=== PATIENT | male | born 1960 | race Caucasian/White ===

== ENCOUNTER 2019-04-08 01:29 | Emergency (ER) | payer OTHER, SELFPAY ==
[2019-04-08 01:30] VITALS: BP 131/60; PULSE 85; RESP 14; TEMP 36.8; O2SAT 93; BMI 32.5
--- NOTE | 2019-04-08 01:32 | ED.DCSUM_ITS ---
History of Present Illness Chief Complaint: Back Informant: Patient Onset: Today Context: Gradual Onset Timing: Continuous Current Severity: Moderate Maximum Severity: Moderate Narrative: The patient presents to the emergency department with atraumatic low back pain. The patient states he was watching football tonight. He began to have some tightness in his left low back. Since then, he states that it worsened and he had a difficult time walking because of the pain. It does not radiate down his legs. He denies any numbness in his groin. He denies any trauma. He states he does have a history of prior back pain and usually only takes aspirin. He is had no history of prior back surgery. He is otherwise been in his normal state of health. Prior similar symptoms: Yes Recent Illness/Hospitalization: No Past Medical History - Allergies and Home Meds Allergies/Adverse Reactions: Allergies No Known Allergies Allergy (Verified 04/08/19 01:29) Primary Care Physician: Gildardo Pedroza MD [Primary Care Provider] - Prior records reviewed: Yes Surgical History: no surgical history Lives: With Family Smoking Status: Current some day smoker Review of Systems General: Denies: Chills, Fever, Sweats Eyes: Denies: Visual changes - bilaterally, Diplopia ENT: Denies: Rhinorrhea, Sore throat Cardiovascular: Denies: Chest pain, Palpitations Respiratory: Denies: Dyspnea, Cough, Dyspnea on exertion Gastrointestinal: Denies: Abdominal pain, Nausea, Vomiting, Diarrhea, Melena, Hematochezia Genitourinary: Denies: Dysuria, Hematuria, Frequency Musculoskeletal: Reports: Back pain. Denies: Extremity Pain Skin: Denies: Rash, Wounds Neurological: Denies: Headache, Weakness, Numbness Physical Exam Inital Vital Signs reviewed: Yes General: Well nourished, Well developed, No Acute Distress Head: Normocephalic, Atraumatic Eyes: Perrl, EOMI ENT: Moist mucous membranes, No rhinorrhea Neck: Supple, Nontender Cardiovascular: Regular rate, Regular rhythm, No murmurs Respiratory: No distress, CTA bilaterally, Chest nontender Abdomen: Soft, Nontender, Nondistended, Normal bowel sounds Back: Nontender, Normal Inspection Extremities: Nontender, No edema Skin: Normal color, No rash Neurological: Alert, Oriented x3, Cranial nerves II-XII grossly intact, Normal Strength, Normal Sensation Psychological: Normal affect, Normal Mood Diagnostic/Tx/Re-eval Clinical Impression(s) from Imaging Studies Abdomen/Pelvis CT 04/08/19 01:42 IMPRESSION: Sigmoid diverticulosis. There is a 12 mm spondylolisthesis at L5-S1 due to degenerative changes in the facet joints. There is a left-sided inguinal hernia containing adipose tissue. There is a small umbilical hernia containing fat. Electronically Signed: Ramandeep Leon, at 3:13 EDT Tel , Service support , Abnormal Lab Results 04/08/19 04/08/19 04/08/19 01:46 02:35 02:35 WBC 9.7 RBC 4.62 Hgb 14.4 Hct 43.4 MCV 93.9 MCH 31.2 MCHC 33.2 RDW Std Deviation 45.3 H RDW Coeff of Jayro 13.2 Plt Count 218 MPV 10.4 Immature Gran % (Auto) 0.500 Neut % (Auto) 77.3 H Lymph % (Auto) 10.2 L Hettinger % (Auto) 9.7 Eos % (Auto) 1.9 Baso % (Auto) 0.4 Absolute Neuts (auto) 7.5 Absolute Lymphs (auto) 0.99 Nucleated RBC % 0 Sodium 143 Potassium 4.2 Chloride 111 H Carbon Dioxide 27.0 Anion Gap 5 BUN 19 H Creatinine 1.20 Estim Creat Clear Calc 64.26 Est GFR (MDRD) Af Amer 80 Est GFR (MDRD) Non-Af 67 BUN/Creatinine Ratio 15.8 Glucose 108 H Calcium 8.5 Urine Color SEE COMMENT BELOW Urine Clarity Cloudy Urine pH 6.0 Ur Specific Harlan 1.015 Urine Protein Negative Urine Glucose (UA) Normal Urine Ketones Negative Urine Occult Blood 250 H Urine Nitrite Negative Urine Bilirubin Negative Urine Urobilinogen Normal Ur Leukocyte Esterase Negative Urine RBC 25-50 SEEN Urine WBC 0 SEEN Ur Squamous Epith Cells 0 SEEN Urine Bacteria RARE Urine Mucus 0 SEEN - Medical Decision Making Patient presents to the emergency department with left low back pain. It does not radiate down his legs. It was gradual in onset and has been worsening. He denies any weakness or red flag symptoms. His urine did have some blood. Given this and his age, screening labs are obtained which are unremarkable. The patient underwent CT of his abdomen and pelvis. His aorta is normal. He does have rather significant disease in the spine which I feel is likely the cause of his symptoms. There is no definitive kidney stone. With analgesics, the patient symptoms have improved. I am going to treat him with analgesics and antispasmodics as an outpatient. I did evp general counsel him that he may need physical therapy or an outpatient MRI, but he has no evidence of cauda equina or epidural abscess. I do feel that he is safe for discharge. Impression 1. Left low back pain ED Disposition - Plan for ED Patient: Instructions: BACK PAIN w/ SCIATICA Prescriptions: cycloBENZAPRine HCl [Flexeril] 10 mg PO TID PRN #20 tab PRN Reason: Muscle Spasm Prescription Printed MethylPREDNISolone DosePak [Medrol DosePak] 4 mg PO UD #1 box Prescription Printed Hydrocodone Bitart/Apap 5-325 [[place] 5MG-325MG] 1 tab PO Q6H PRN PRN 3 Days #10 tab PRN Reason: Pain Prescription Printed Referrals: Gildardo Pedroza MD [Primary Care Provider] -
[2019-04-08] MEDS: HYDROcodone Bitartrate/Apap 5/325 Tablet PO (01:37)
--- NOTE | 2019-04-08 01:42 | CT_ITS ---
STUDY: CT ABDOMEN AND PELVIS WITHOUT CONTRAST REASON FOR EXAM: Male, 58 years old. BACK PAIN LOWER LEFT SIDE WITH LEFT LEG SPASMS RADIATION DOSAGE (If Supplied By Facility): CTDIvol = ( 12.94 ) mGy, DLP = ( 639.94 ) mGycm TECHNIQUE: Transaxial images were obtained from the dome of the diaphragm to the symphysis pubis without oral contrast, and without intravenous contrast. Sagittal and coronal images were reconstructed. Individualized dose optimization techniques were used for this CT. COMPARISON: None. FINDINGS: The visualized lung bases are unremarkable. The visualized portions of the heart are within normal limits. Normal liver. Normal gallbladder and extrahepatic biliary system. Normal spleen. Normal pancreas. Normal bilateral adrenal glands. Normal right kidney. Normal left kidney. Normal visualized stomach. Normal small intestine. There are multiple colonic diverticula consistent with diverticulosis. The appendix is visualized and appears normal. Normal abdominal aorta. Normal inferior vena cava. Normal retroperitoneum. Normal urinary bladder. There is a left-sided inguinal hernia containing adipose tissue. There is a small umbilical hernia containing fat. There are diffuse degenerative changes of the visualized lumbar spine there is 12 mm spondylolisthesis at L5-S1 due to degenerative changes in the facet joints. CT/Abdomen/Pelvis without Cont IMPRESSION: Sigmoid diverticulosis. There is a 12 mm spondylolisthesis at L5-S1 due to degenerative changes in the facet joints. There is a left-sided inguinal hernia containing adipose tissue. There is a small umbilical hernia containing fat. Electronically Signed: Ramandeep Leon, at 3:13 EDT Tel , Service support ,
[2019-04-08 01:50] LABS: Mucous, Urine 0 SEEN /hpf (<or=2+); Squamous Epithelial Cells - UA 0 SEEN /hpf (0-5); White Blood Cells 0 SEEN /hpf (0-5)
[2019-04-08 01:52] LABS: Glucose, Dipstick Normal (Normal); Ketone-Dipstick Negative (Negative); Leukocyte Esterase-Dipstick Negative /ul (Negative); Nitrite-Dipstick Negative (Negative); Occult Blood-Urine 250 /ul (Negative); Protein-Dipstick Negative (Negative); Specific Gravity, Urine 1.015 (1.002-1.030); Urine Bilirubin Dipstick Negative (Negative); Urine Clarity Cloudy (Clear); Urine Urobilinogen Normal (Normal)
[2019-04-08 02:00] LABS: Color, Urine SEE COMMENT BELOW (Yellow)
[2019-04-08 02:01] LABS: Red Blood Cells-Urine 25-50 SEEN /hpf (0-5)
[2019-04-08 02:02] LABS: Bacteria RARE /hpf (None Seen)
[2019-04-08 02:39] LABS: Absolute Lymphocyte Count 0.99 X10^3/uL (0.83-4.51); Absolute Neutrophil Count 7.5 X10^3/uL (2.0-7.7); Basophil# 0.04 X10^3/uL; Basophil% 0.4 % (0-1); Eosinophil# 0.18 X10^3/uL; Eosinophils% 1.9 % (0-5); Hematocrit 43.4 % (40-54); Hemoglobin 14.4 g/dL (13.0-16.5); Lymphocyte # 0.99 X10^3/ul (4.0); Lymphocyte % 10.2 % (19-41); Mean Corp Hgb Conc 33.2 g/dL (32-36); Mean Corpuscular Hgb 31.2 pg (27.0-32.0); Mean Corpuscular Volume 93.9 fL (80-94); Mean Platelet Vol. 10.4 fl (6.2-12.0); Monocyte# 0.94 X10^3/uL; Monocyte% 9.7 % (0-10); NRBC Flagged by Analyzer 0 % (0-5); Neutrophil # 7.51 X10^3/uL (2.7-7.7); Neutrophil % 77.3 % (47-70); Platelet Count 218 K/mm3 (150-450); RBC Distribution Width CV 13.2 % (11.6-14.6); RBC Distribution Width SD 45.3 fl (35.1-43.9); Red Blood Count 4.62 M/mm3 (4.6-6.2); White Blood Count 9.7 K/mm3 (4.4-11.0)
[2019-04-08] MEDS: Morphine 4 MG/ML Syringe IV (02:41)
[2019-04-08] MEDS: 0.9% Normal Saline 1,000 ML 1000 ML IV (02:41)
[2019-04-08] MEDS: Ketorolac 15 MG/ML Vial IV (02:41)
[2019-04-08] MEDS: Ondansetron 4 MG/2 ML Vial IV (02:41)
[2019-04-08 02:51] LABS: Anion Gap 5 (5-15); BUN 19 mg/dL (7-18); BUN/Creat Ratio 15.8 RATIO (10-20); Calcium,Total 8.5 mg/dL (8.5-10.1); Chloride 111 mmol/L (98-107); EST Glomerular Filtration Rate 67 mL/min (>60); Est Glom Filt Rate - Afr Amer 80 mL/min (>60); Estimated Creatinine Clearance 64.26 ml/min; Glucose 108 mg/dL (74-106); Potassium 4.2 mmol/L (3.5-5.1); Sodium Level 143 mmol/L (136-145)
[2019-04-08 03:33] VITALS: BP 130/60; PULSE 87; RESP 18; O2SAT 96
== END 2019-04-08 03:39 | disposition home or self-care (01) ==
PROVIDERS: Emergency Provider Emergency Medicine; Family Provider Family Medicine; PCP Family Medicine
DX: M54.5 Low back pain (principal); F17.200 Nicotine dependence, unspecified, uncomplicated; Z79.82 Long term (current) use of aspirin
CPT/HCPCS: 74176; 80048; 81001; 85025; 96361; 96374; 96375; 99284; J7030; J2405